=== PATIENT | male | born 1945 | race Caucasian/White ===

== ENCOUNTER 2021-10-08 05:53 | Inpatient (IN) ==
--- NOTE | 2021-09-19 15:53 | PAT Medication Instructions ---
Medication Instructions Date of Service September 19, 2021 Home Medications atorvastatin 20 mg tablet 20 mg PO HS ibuprofen 200 mg tablet (Advil) 400 mg PO Q6H PRN metformin 500 mg tablet 1,000 mg PO BID ASK your surgeon for instructions ibuprofen 200 mg tablet (Advil) 400 mg PO Q6H PRN DO NOT take the morning of surgery metformin 500 mg tablet 1,000 mg PO BID Take evening before surgery atorvastatin 20 mg tablet 20 mg PO HS metformin 500 mg tablet 1,000 mg PO BID Other Notes If you have any questions please call us at [phone] or [phone] or [phone] or [phone]
--- NOTE | 2021-09-24 13:57 | Anesthesiology Consultation ---
Date of Service September 24, 2021 Assessment & Plan (1) Encounter for pre-operative examination: Chart Review Chart Review: Acceptable Risk for Surgery (pending preop Covid testing results and surgeon ordered PCP clearance (09/29/21)) and Patient seen in Pre Admission Testing -Awaiting PCP clearance scheduled 09/29/21 - Check BSG AM DOS Per PAT appt on 09/24/21, patient denies any recent travel or large group activities. No known Covid positive exposures or Covid related symptoms. No known Covid infection in the past 90 days. Pt is vaccinated for Covid. Preop Covid testing scheduled 10/06/21 = will await results. Educated on importance of self quarantining, social distancing and wearing mask in public for the patient one week prior to surgery and after Covid testing done History Surgery Operation Date: 10/08/21 07:45 Proposed Procedures p C4-C6 Anterior Cervical Discectomy Fusion Spinal Cord Monitoring - Radu Kerr, Height/Weight Height: 5 ft 9 in Weight: 92 kg Allergies Allergy/AdvReac Type Severity Reaction Status Date / Time No Known Allergies Allergy Verified 09/19/21 13:48 Medications Home Medications Medication Instructions Recorded Confirmed Last Taken atorvastatin 20 mg tablet 20 mg PO HS 10/09/20 09/19/21 Unknown ibuprofen 200 mg tablet (Advil) 400 mg PO Q6H PRN 09/19/21 09/19/21 Unknown metformin 500 mg tablet 1,000 mg PO BID 09/19/21 09/19/21 Unknown Past Medical History Medical History BPH (benign prostatic hyperplasia) Also has prostate stones BPPV (benign paroxysmal positional vertigo) Stable- no recent issues Chronic neck pain Diabetes Sugars stable 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 per 2019 ECHO (4.0cm) HTN (hypertension) Hyperlipidemia Obesity Skin cancer s/p resection Exercise / Class Metabolic Activity II 4-5 Yardwork/Stairs/Walk up hill (one flight of stairs - no chest pain or SOB ) Past Family History Family History Other No family history of adverse response to anesthesia Past Surgical History Surgical History H/O inguinal hernia repair Right History of colonoscopy History of surgery Excision from facial, ear S/P cervical spinal fusion Status post surgical removal of ganglion cyst Left Past Anesthesia History No Hx of Anesthesia Complications and No Family Hx of Anesthesia Complications History of PONV No Hx of PONV and No Hx of Motion Sickness Social History Smoking Status: Never smoker Do You Dip or Chew Tobacco: No Hx Alcohol Use: No Hx Substance Use: No substance use type: does not use Review of Systems Hx of snoring- no witnessed apnea- no hx of sleep study Patient denies chest pain, shortness of breath, dyspnea on exertion, reflux, cough, wheezing, palpitations. No hx of seizures, stroke, DC. No hx of blood clots or blood transfusions Physical Exam Vital Signs VITALS BP 169/73 (usually better controlled per patient- monitors at home- will check at home and call PCP if elevated) P 65 TEMP 97.9 SP02 96% RESP 16 Constitutional no acute distress ENMT Mouth: no TMJ clicking Thyromental Distance: > or= 3.5 Finger Breadths Mallampati Class: II (smaller airway) Neck + thick neck and + limited neck extension (significant ) Respiratory normal respiratory effort; no respiratory distress Auscultation: lungs clear to auscultation bilaterally; no wheezes Cardiovascular Rate/Rhythm: regular rate and regular rhythm Heart Sounds: no murmur Vessels: no carotid bruit Musculoskeletal Spine: + pain with cervical ROM Extremities: extremities normal to inspection Psychiatric Orientation: alert Lab Results Anesthesia Preop Results Results Anesthesia Widget: WBC 6.61 K/uL (4.8-10.8) 09/24/21 Hgb 15.4 g/dL (14.0-18.0) 09/24/21 Hct 45.5 % (42-52) 09/24/21 Plt 194 K/uL (130-400) 09/24/21 Na 139 mmol/L (136-145) 09/24/21 K 4.3 mmol/L (3.5-5.1) 09/24/21 Cl 106 mmol/L (98-107) 09/24/21 CO2 26 mmol/L (21-32) 09/24/21 BUN 15 mg/dl (6-23) 09/24/21 Creat 0.88 mg/dl (0.6-1.4) 09/24/21 Glucose Level 173 mg/dl (70-99(Fasting)) H 09/24/21 PT 11.1 Seconds (9.0-12.0) 09/24/21 PTT 29.8 Seconds (21.0-31.0) 09/24/21 INR 1.0 (0.9-1.1) 09/24/21 HA1c 6.0 % (4.5-5.6) H 09/24/21 Urine Color Yellow 09/24/21 Urine Appearance Clear (Clear) 09/24/21 Urine pH 5.0 (4.5-7.5) 09/24/21 Urine Specific [place] 1.020 (1.000-1.030) 09/24/21 Urine Protein Negative (Negative) 09/24/21 Urine Glucose (UA) Negative (Negative) 09/24/21 Urine Ketones Negative (Negative) 09/24/21 Urine Blood Negative (Negative) 09/24/21 Urine Nitrite Negative (Negative) 09/24/21 Urine Bilirubin Negative (Negative) 09/24/21 Urine Urobilinogen Negative (Negative) 09/24/21 Urine Leukocyte Esterase Negative (Negative) 09/24/21 Blood Type A Positive 09/24/21 Antibody Screen NEGATIVE 09/24/21 Testing Electrocardiogram Date: 09/24/21 Findings: + NSR @ (64bpm ) Normal EKG per cardio Chest X-Ray Date: 09/24/21 Findings: + NAD Echocardiogram Date: 07/27/19 EF: 69% LV Function: normal RWMA: + none Other Findings: + diastolic dysfunction (Grade I ); no LVH LV is normal in size. Proximal ascending thoracic aorta is mildly enlarged (4.0 cm). Aortic root mildly enlarged. Insufficient TR to accurately measure pulmonary pressure. Mild MR. Mild AL.
[2021-10-08] MEDS ORDERED: ceFAZolin 2000MG 2,000 MG/15 ML SYR IV SCH (06:00)
[2021-10-08] MEDS ORDERED: LR 15ML/HR IV SCH (06:00)
[2021-10-08] MEDS ORDERED: ACETAMINOPHEN 500 MG TAB PO SCH (06:00)
[2021-10-08] MEDS ORDERED: GABAPENTIN 300 MG CAP PO SCH (06:00)
[2021-10-08] MEDS ORDERED: CeleBREX 200 MG CAP PO SCH (06:00)
[2021-10-08] MEDS ORDERED: LIDOCAINE 2% 2 ML VIAL/AMP(20MG/ML) INFIL ONE (06:36)
[2021-10-08] MEDS ORDERED: PROPOFOL IV EMULSION 10 MG/ML 20 ML VIAL IV ONE (06:36)
[2021-10-08] MEDS ORDERED: DEXAMETHASONE SOD INJ 4 MG/ML VIAL ONE (06:36)
[2021-10-08] MEDS ORDERED: ONDANSETRON INJ 2 MG/ML 2 ML VIAL ONE (06:36)
[2021-10-08] MEDS ORDERED: fentaNYL citrate 100 MCG/2 ML VIAL ONE (06:36)
[2021-10-08] MEDS ORDERED: GLYCOPYRROLATE 0.2 MG/ML VIAL ONE (06:36)
[2021-10-08] MEDS ORDERED: NEOSTIGMINE METHYLSULFATE 1 MG/ML 10ML VIAL ONE (06:36)
[2021-10-08] MEDS ORDERED: MIDAZOLAM HCL 1 MG/ML 2ML VIAL ONE (06:36)
[2021-10-08] MEDS ORDERED: ROCURONIUM BROMIDE 10 MG/ML 5 ML VIAL IV ONE (06:38)
[2021-10-08] MEDS ORDERED: ceFAZolin 330 MG/ML 1 GM VIAL ONE (07:02)
[2021-10-08] MEDS ORDERED: ePHEDrine sulfate 50 MG/ML AMP IV PRN (07:25)
[2021-10-08] MEDS ORDERED: ONDANSETRON INJ 2 MG/ML 2 ML VIAL IV PRN ×2 (07:25→12:03)
[2021-10-08] MEDS ORDERED: ATROPINE SULFATE 0.1 MG/ML 10ML SYR IV PRN (07:25)
[2021-10-08] MEDS ORDERED: HYDROmorphone INJ 2 MG/ML SYR/VIAL IV PRN (07:25)
[2021-10-08] MEDS ORDERED: fentaNYL citrate 100 MCG/2 ML VIAL IV PRN (07:25)
[2021-10-08] MEDS ORDERED: PROMETHAZINE HCL 12.5 MG in SODIUM CHLORIDE 0.9% 50 ML IV PRN ×2 (07:25→12:03)
--- NOTE | 2021-10-08 07:36 | History & Physical Bridge Note ---
Date of Service October 08, 2021 History & Physical Bridge Note I have examined the patient, reviewed the History & Physical and in the interval since the performance of the History & Physical I have noted the following changes of clinical significance: no changes noted
--- NOTE | 2021-10-08 07:42 | History & Physical Report ---
Date of Service October 08, 2021 Assessment & Plan (1) Herniation of cervical intervertebral disc with radiculopathy: Plan: C4-C6 anterior cervical discectomy and fusion History of Present Illness Chief Complaint: Neck and arm pain Primary Care Provider: Clovis Stokes PA-C This is a 76-year-old male presents with chronic persistent neck and arm pain after failed course of nonoperative care is here for surgical invention. Allergies Allergy/AdvReac Type Severity Reaction Status Date / Time No Known Allergies Allergy Verified 10/08/21 06:27 Home Medications Medication Instructions Recorded Confirmed Type atorvastatin 20 mg tablet 20 mg PO HS 10/09/20 10/08/21 History ibuprofen 200 mg tablet (Advil) 400 mg PO Q6H PRN 09/19/21 10/08/21 History metformin 500 mg tablet 1,000 mg PO BID 09/19/21 10/08/21 History Past Med/Surg History Medical History BPH (benign prostatic hyperplasia) Also has prostate stones BPPV (benign paroxysmal positional vertigo) Stable- no recent issues Chronic neck pain Diabetes Sugars stable 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 per 2019 ECHO (4.0cm) HTN (hypertension) Hyperlipidemia Obesity Skin cancer s/p resection Surgical History H/O inguinal hernia repair Right History of colonoscopy History of surgery Excision from facial, ear S/P cervical spinal fusion Status post surgical removal of ganglion cyst Left Family History Other No family history of adverse response to anesthesia Social History Smoking Status: Never smoker Second Hand Exposure: Yes (AT [employer]); Do You Dip or Chew Tobacco: No; Hx Alcohol Use: No Hx Substance Use: No Preferred Language: Swiss Communication Ability: Effective Key Account Coordinator Required: No Beliefs That Will Affect Care: None Current Living Situation: Spouse current occupational status: retired Other Information That Helps Us Care for You: No Feels Safe at Home: Yes Safety Concerns: Feels Safe At This Time Assistive Devices: Glasses Physical Exam Physical Exam: Patient is alert and oriented Heart regular in rhythm Lungs clear Results & Data Results & Data ([facility]) Vital Signs (Past 12 Hours) Vital Signs Temp Pulse Resp BP Pulse Ox 10/08/21 06:31 36.9 C 57 L 18 194/67 H 97
[2021-10-08] MEDS ORDERED: FLOSEAL HEMOSTATIC MATRIX 10ML TOP ONE (09:17)
--- NOTE | 2021-10-08 09:18 | Operative Report ---
Post Operative Report Pre & Post Diagnosis Operation Date: 10/08/21 07:45 Pre-Op Diagnosis: Spinal Stenosis, Cervical Region Post-Op Diagnosis: Spinal Stenosis, Cervical Region I identified the patient and participated in the time-out.: Yes Procedure Operation Date: 10/08/21 07:45 Actual Procedures 1 anterior cervical discectomy with bilateral foraminotomies C4-C5 C5-C6. #2 anterior cervical arthrodesis C4-C5 C5-C6. #3 placement of globus coalition interbody spacer filled with infuse 8 mm in height at C4-C5 and 10 mm in height at C5-C6. Surgeon Radu Kerr, Program Admin Kathy Moreno Estimated Blood Loss 20 Findings Consistent with Post-Op Diagnosis Specimens None Indications This is a 76-year-old male who presents with significant cervical radiculopathy. Failing course of nonoperative care is here for surgical intervention. Description of Procedure Patient was met with identified informed consent obtained. Patient was then taken to the operative suite underwent a patient placed in supine position Brennan table head Dalton head setter. All bony prominences well-padded eyes inspected to ensure no external pressure placed upon them. This point the anterior cervical spine was prepped and draped in normal sterile fashion. The assistance of fluoroscopy identified the C5 vertebral body and a transverse incision was placed along the right anterior aspect of the cervical spine overlying this region. Blunt dissection with the assistance of bipolar electrocautery was then performed down to and exposing the anterior cervical spine from C4 to C 6. Self-retaining retractors placed. Then formed a complete discectomy of C5-C6 out to the uncovertebral joints bilaterally. Removed all posterior annular fibers longitudinal ligament bilateral foraminotomies performed. Endplates burred to subcortical bleeding bone and a 10 mm coalition cage filled with I factor tapped in position and screwed into place. I then proceeded to C4-C5 and again complete discectomy performed out to the uncovertebral's bilaterally. [place] distracting pins to assist in visuali zation. Removed all posterior fibers longitudinal ligament bilateral foraminotomies performed. Endplates were then burred to subcortical bleeding bone and 8 mm coalition cage filled with I factor tapped in position and screwed into place. The incision was then copiously irrigated explored to ensure no damage to surrounding structures remaining bleeding. 10 round YARON drain inserted. The incision was then closed with 2 Vicryl in a fashion of 4 Monocryl for final skin closure. Steri-Strip sterile dressings placed. Patient waken taken PACU stable condition. Please note spinal cord monitoring was utilized at the procedure no changes noted. Lastly Kathy Moreno was present out the entire surgery and while the patient positioning complex portions of the surgery and fascial closure. I attest to the content of the Intraoperative Record and any orders documented therein. Any exceptions are noted below.
--- NOTE | 2021-10-08 09:57 | Fluoroscopy Report ---
FL cervical 2-3V CLINICAL HISTORY: ACDF C4-C6 COMPARISON STUDY: None FLUOROSCOPY TIME: 12 seconds. FLUOROSCOPIC IMAGES: 2 fluoroscopic spot images FINDINGS: AP and lateral spot images demonstrate anterior plate and screw fixation from C4 through C6 . Disc spacers are also noted. IMPRESSION: Status post anterior fusion and placement of disc spacers. ACT 112: Negative or not required by law. Electronically signed by: Wilber Moon M.D. 10/08/2021 9:56 AM
--- NOTE | 2021-10-08 10:35 | Anesthesiology Progress Note ---
Date of Service October 08, 2021 Anesthesia Post Procedure Vital Signs Vital Signs: Temp Pulse Pulse Resp BP BP Pulse Ox 10/08/21 10:25 59 L 12 152/73 H 97 10/08/21 10:15 64 12 151/73 H 96 10/08/21 10:05 62 12 149/72 H 98 10/08/21 09:55 68 13 138/65 99 10/08/21 09:45 61 12 107/66 97 10/08/21 09:36 36.0 C L 67 12 143/54 H 99 10/08/21 06:31 36.9 C 57 L 18 194/67 H 97 Pain Intensity Left Neck: Pain Intensity: 4 Transfer of Care Handoff Completed per policy Notes Mental Status: alert / awake / arousable and participated in evaluation Patient Amnestic to Procedure: Yes Nausea / Vomiting: adequately controlled Pain: adequately controlled Airway Patency, RR, SpO2: stable & adequate BP & HR: stable & adequate Hydration State: stable & adequate Anesthetic Complications: no major complications apparent
[2021-10-08] MEDS ORDERED: PHARMACY GLYCEMIC MGMT CONSULT PRN (12:03)
[2021-10-08] MEDS ORDERED: DO NOT ADMINISTER PNEUMOCOCCAL VACCINE PRN (12:03)
[2021-10-08] MEDS ORDERED: FAMOTIDINE 20 MG TAB PO PRN (12:03)
[2021-10-08] MEDS ORDERED: NALOXONE HCL 0.4 MG/1 ML VIAL/CARP IV PRN (12:03)
[2021-10-08] MEDS ORDERED: HYDROmorphone INJ 1 MG/ML SYRINGE IV PRN (12:03)
[2021-10-08] MEDS ORDERED: hydrOXYzine HCl 25 MG TAB PO PRN (12:03)
[2021-10-08] MEDS ORDERED: METOCLOPRAMIDE HCL INJ 5 MG/ML 2 ML VIAL IV PRN (12:03)
[2021-10-08] MEDS ORDERED: bisacodyL 10 MG SUPP PR PRN (12:03)
[2021-10-08] MEDS ORDERED: LORazepam 0.5 MG TAB PO PRN (12:03)
[2021-10-08] MEDS ORDERED: ALUMINUM/MAGNESIUM SUSP 30 ML UDC PO PRN (12:03)
[2021-10-08] MEDS ORDERED: LORazepam 2 MG/1 ML VIAL IV PRN (12:03)
[2021-10-08] MEDS ORDERED: traMADol HCL 50 MG TABLET PO PRN (12:03)
[2021-10-08] MEDS ORDERED: oxyCODONE HCL IR 5 MG TAB (IMMEDIATE RELEASE) PO PRN (12:03)
[2021-10-08] MEDS ORDERED: diphenhydrAMINE Capsule 25 MG CAP PO PRN (12:03)
[2021-10-08] MEDS ORDERED: DO NOT ADMINISTER FLU VACCINE PRN (12:03)
[2021-10-08] MEDS ORDERED: ACETAMINOPHEN 500 MG TAB PO PRN (12:03)
[2021-10-08] MEDS ORDERED: SOD PHOSPHATE/SOD BIPHOSPHATE ENEMA 132 ML BTL PR PRN (12:03)
[2021-10-08] MEDS ORDERED: MAGNESIUM HYDROXIDE SUSP 30 ML UDC PO PRN (12:03)
[2021-10-08] MEDS ORDERED: RACEPINEPHRINE 2.25% NEBU SOLN 0.5 ML VIAL INH PRN (12:03)
[2021-10-08] MEDS ORDERED: dexAMETHasone 8 MG in SYRINGE 0 ML IV PRN (12:03)
[2021-10-08] MEDS ORDERED: ONDANSETRON 4 MG OD TAB PO PRN (12:03)
[2021-10-08] MEDS ORDERED: HYDROmorphone INJ 0.5 MG/0.5 ML SYR IV PRN (12:03)
[2021-10-08] MEDS ORDERED: ACETAMINOPHEN 1,000 MG/100 ML VIAL IV PRN (12:03)
--- NOTE | 2021-10-08 14:01 | Pharmacy Report ---
Pharmacy Glycemic Short Note 2 - Date of Service October 08, 2021 - Glycemic Short BSG Results (Last 24 hours): 10/08/21 10/08/21 10/08/21 06:33 09:39 13:55 POC Glucose 120 H 130 H 133 H OUTPATIENT ANTIDIABETIC REGIMEN: * Metformin 1 g PO BIDM * HbA1c: 6% (09/24/21) ASSESSMENT: * RR is a 76 year old male POD #0 s/p discectomy/fusion * Received 4 mg IV dexamethasone in OR, ordered 6 mg IV daily starting tomorrow morning * preop BSG of 130 mg/dL, postop BSG of 133 mg/dL * Given excellent HbA1c and well-controlled BSGs so far, will hold off on NPH at this time PLAN FOR INPATIENT GLYCEMIC CONTROL: * Hold outpatient oral diabetes medications * consider restarting tomorrow * Basal insulin * hold * Bolus insulin * NovoLog per scale ACHS or Q6hrs while NPO * Goal Range: Low 110 mg/dL - High 140 mg/dL * Correction Factor: 20 mg/dL/unit * Nutritional / Prandial insulin per carb ratio of 1 unit per 7 grams CHO consumed
[2021-10-08] MEDS: INSULIN ASPART PER UNIT SC SCH ×3 (15:25→20:39)
[2021-10-08] MEDS: SODIUM CHLORIDE 0.9% 1000ML 1,000 ML IV SCH (15:42)
--- NOTE | 2021-10-08 17:43 | Consultation ---
Date of Consultation October 08, 2021 Assessment & Plan (1) Herniation of cervical intervertebral disc with radiculopathy: (2) HTN (hypertension): (3) Diabetes: (4) Hyperlipidemia: Herniation of cervical intervertebral disc with radiculopathy Status post ACDF C4-C6 by Dr. Kerr, POD #0 EBL 20 mL Tolerated procedure well Pain/wound management per orthopedics Activity and therapy as directed by Ortho Wean oxygen as able Preop hemoglobin 15.4 T2DM A1c 6.1 preoperatively Hold metformin Glycemic pharmacy on board, appreciate their management HLD Continue statin HTN dx per OP epic; however not on meds will monitor post operatively DVT prophylaxis: SCD/teds, per primary Dispo: Per primary Full code PCP: Clovis Stokes Pt was seen and examined in collaboration with Dr. Jones, please see addendum Thank you for this consultation. We will follow the patient with you during their hospital stay. You can reach a member of the [facility] Hospitalist Team 14/12 via hospitalist role on tiger text. Supervising Physician Co-Signing Physician Notes History notable for 76-year-old man with diabetes type 2, hypertension, BPH who had cervical decompression surgery (ACDF C4-C5 and C5-C6) for cervical spinal stenosis. Patient reports surgical site pain is well controlled Patient has cervical collar with surgical site drain insitu. Other exam unremarkable Check CBC and BMP tomorrow Pharm on for glycemic control Continue home medication Agree with other plans as detailed by Camilla Parra PA-C History of Present Illness Requesting Physician: Dr. Kerr Reason for Consultation: Postop medical management Attending Physician: Radu Kerr, History of Present Illness This is a 76-year-old male who has significant past medical history of T2DM, HTN, HLD, BPH who presented for elective surgical procedure by Dr. Kerr. Patient underwent ACDF C4-C5 and C5-C6 and tolerated the procedure well. He had EBL of 20 mL. We are consulted for postop medical management. Patient has history of T2DM controlled on oral metformin. His last A1c on 06/26/2021 was 6.2. He also has history of hyperlipidemia controlled on atorvastatin. In epic he also has diagnosis of HTN however he is not managed medically for this. Postoperatively he feels well. He initially had Woodard catheter in place and this has since been removed. He has not yet urinated since Woodard catheter has been removed. He tolerated his clear liquid diet. He complains of mild sore throat but denies any difficulty swallowing. He denies fever, chills, sweats, lightheadedness, dizziness, chest pain, shortness breath, URI symptoms, nausea, vomiting, abdominal pain. He denies any radicular symptoms to his upper extremities including numbness, tingling or pain. He states, "this is the best my shoulders have felt in years." Allergies Allergy/AdvReac Type Severity Reaction Status Date / Time No Known Allergies Allergy Verified 10/08/21 06:27 Home Medications Medication Instructions Recorded Confirmed Type atorvastatin 20 mg tablet 20 mg PO HS 10/09/20 10/08/21 History ibuprofen 200 mg tablet (Advil) 400 mg PO Q6H PRN 09/19/21 10/08/21 History metformin 500 mg tablet 1,000 mg PO BID 09/19/21 10/08/21 History Patient History Medical History (Updated 10/08/21 @ 17:40 by Camilla Parra PA-C) BPH (benign prostatic hyperplasia) Also has prostate stones BPPV (benign paroxysmal positional vertigo) Stable- no recent issues Chronic neck pain Diabetes Sugars stable 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 per 2019 ECHO (4.0cm) HTN (hypertension) Hyperlipidemia Obesity Skin cancer s/p resection Surgical History H/O inguinal hernia repair Right History of colonoscopy History of surgery Excision from facial, ear S/P cervical spinal fusion Status post surgical removal of ganglion cyst Left Family History Other No family history of adverse response to anesthesia Social History Smoking Status: Never smoker Second Hand Exposure: Yes (AT FIRST JOB); Do You Dip or Chew Tobacco: No; Hx Alcohol Use: No Hx Substance Use: No Preferred Language: Tuvaluan Communication Ability: Effective Microchip Specialist Required: No Beliefs That Will Affect Care: None Current Living Situation: Spouse current occupational status: retired Other Information That Helps Us Care for You: No Feels Safe at Home: Yes Safety Concerns: Feels Safe At This Time Assistive Devices: Glasses Review of Systems Review of Systems: All systems reviewed & are unremarkable except as noted in HPI & below Physical Exam Physical Exam: Constitutional: WD/WN, vitals as above, NAD, sitting up in bed, pleasant, conversing easily Head: Normocephalic, Atraumatic Eyes: PERRL, conjunctivae normal, anicteric sclerae ENMT: external ear and nose normal, oropharynx normal Neck: C collar in place with YARON drain, dressing CDI, serosang drainage Respiratory: normal respiratory effort, lungs clear to auscultation, no wheeze, rales, rhonchi. Normal insp/exp effort, no accessory muscle use Cardiovascular: RRR, no murmur, no edema , teds in place, Vessels: no JVD or c arotid bruit Chest: normal inspection of chest Abdomen: normal bowel sounds, soft, nontender, no hepatosplenomegaly Musculoskeletal: no cyanosis or clubbing,AROM x 4 Skin: no rashes, warm and dry normal turgor Neurologic: PERRL, EOMI, accommodation nl, no face palsy, no dysarthria CN's II-XI intact bilaterally and moves all extremities Psychiatric: A+Ox3, euthymic affect Lymphatic: no cervical or axillary lymphadenopathy : deferred Results & Data ([facility]) Vital Signs (Past 12 Hours) Vital Signs Temp Pulse Pulse Resp BP BP Pulse Ox 10/08/21 16:35 36.9 C 86 18 134/68 95 10/08/21 16:05 36.9 C 92 H 16 134/72 95 10/08/21 15:35 36.8 C 87 16 150/62 H 96 10/08/21 15:05 94 H 22 138/67 97 10/08/21 14:35 95 H 20 142/76 H 95 10/08/21 14:05 36.3 C L 84 12 147/67 H 95 10/08/21 13:35 79 10 L 145/70 H 95 10/08/21 13:05 78 12 148/75 H 96 10/08/21 12:35 73 14 148/74 H 95 10/08/21 12:05 72 12 143/76 H 96 10/08/21 11:50 64 12 138/71 96 10/08/21 11:35 65 12 146/70 H 96 10/08/21 11:20 64 12 151/72 H 95 10/08/21 11:05 59 L 12 150/73 H 94 10/08/21 10:55 62 12 149/72 H 92 10/08/21 10:45 67 16 154/76 H 97 10/08/21 10:35 36.4 C L 59 L 12 159/71 H 96 10/08/21 10:25 59 L 12 152/73 H 97 10/08/21 10:15 64 12 151/73 H 96 10/08/21 10:05 62 12 149/72 H 98 10/08/21 09:55 68 13 138/65 99 10/08/21 09:45 61 12 107/66 97 10/08/21 09:36 36.0 C L 67 12 143/54 H 99 10/08/21 06:31 36.9 C 57 L 18 194/67 H 97 Laboratory Results Preoperative lab work on 09/24/2021 H&H 15.4 and 45.5 WBC 6.61 Platelet 194 CMP general unremarkable except for glucose 173 and A1c of 6.0 Urinalysis negative SARS-CoV-2 negative Diagnostic Findings Cervical Spine X-Ray 10/08/21 07:45 FL cervical 2-3V CLINICAL HISTORY: ACDF C4-C6 COMPARISON STUDY: None FLUOROSCOPY TIME: 12 seconds. FLUOROSCOPIC IMAGES: 2 fluoroscopic spot images FINDINGS: AP and lateral spot images demonstrate anterior plate and screw fixation from C4 through C6. Disc spacers are also noted. IMPRESSION: Status post anterior fusion and placement of disc spacers. ACT 112: Negative or not required by law. revealed no acute process Medications Administered Current Inpatient Medications Acetaminophen (Acetaminophen 500 Mg Tab) 1,000 mg PO PREOP ADAM Stop: 10/08/21 18:00 Last Admin: 10/08/21 06:42 Dose: 1,000 mg Documented by: Acetaminophen (Acetaminophen 500 Mg Tab) 1,000 mg PO Q8H PRN PRN Reason: MILD Pain Scale 1,2,3 & Pre PT Stop: 11/07/21 12:02 Al Hydrox/Mg Hydrox/Simethicone (Aluminum/Magnesium Susp 30 Ml Udc) 30 ml PO Q6H PRN PRN Reason: Dyspepsia Stop: 11/07/21 12:02 Atorvastatin Calcium (Atorvastatin 20 Mg Tab) 20 mg PO HS ADAM Stop: 11/07/21 20:59 Bisacodyl (Bisacodyl 10 Mg Supp) 10 mg OK DAILY PRN PRN Reason: Constipation Stop: 11/07/21 12:02 Celecoxib (Celebrex 200 Mg Cap) 200 mg PO PREOP ADAM Stop: 10/08/21 18:00 Last Admin: 10/08/21 06:42 Dose: 200 mg Documented by: Diphenhydramine HCl (Diphenhydramine Capsule 25 Mg Cap) 25 mg PO Q6H PRN PRN Reason: Allergic Rhinitis/Insomnia Stop: 11/07/21 12:02 Epinephrine (Racepinephrine 2.25% Nebu Soln 0.5 Ml Vial) 0.5 ml INH NOW PRN PRN Reason: If stridor present Famotidine (Famotidine 20 Mg Tab) 20 mg PO Q12H PRN PRN Reason: Dyspepsia Stop: 11/07/21 12:02 Gabapentin (Gabapentin 300 Mg Cap) 300 mg PO PREOP ADAM Stop: 10/08/21 18:00 Last Admin: 10/08/21 06:42 Dose: 300 mg Documented by: Hydromorphone HCl (Hydromorphone Inj 0.5 Mg/0.5 Ml Syr) 0.5 mg IV Q3H PRN PRN Reason: MOD pain (scale 4-6) & Pre PT Stop: 10/22/21 12:02 Hydromorphone HCl (Hydromorphone Inj 1 Mg/Ml Syringe) 1 mg IV Q3H PRN PRN Reason: severe pain (scale 7-10) Stop: 10/22/21 12:02 Hydroxyzine HCl (Hydroxyzine Hcl 25 Mg Tab) 25 mg PO Q8H PRN PRN Reason: Anxiety Stop: 11/07/21 12:02 Lactated Ringer's (Lr) 1,000 mls @ 15 mls/hr IV .Q24H ADAM Stop: 10/09/21 05:59 Last Infusion: 10/08/21 07:44 Dose: Infused Documented by: Cefazolin Sodium (Ancef 2000mg) 2,000 mg in 15 mls @ 3.75 mls/min IV PREOP ADAM; Protocol Stop: 10/08/21 18:00 Last Admin: 10/08/21 07:44 Dose: 3.75 mls/min Documented by: Dexamethasone 8 mg/ Syringe 2 mls @ 1 mls/min IV NOW PRN PRN Reason: If stridor present Cefazolin Sodium (Ancef 2000mg) 2,000 mg in 15 mls @ 3.75 mls/min IV Q8H ADAM; Protocol Stop: 10/09/21 01:03 Sodium Chloride (Nss 1000ml) 1,000 mls @ 100 mls/hr IV .Q10H ADAM Stop: 11/07/21 12:02 Last Admin: 10/08/21 15:42 Dose: 100 mls/hr Documented by: Promethazine HCl 12.5 mg/ (Sodium Chloride) 50.5 mls @ 202 mls/hr IV Q6H PRN PRN Reason: Nausea &/or Vomiting Stop: 11/07/21 12:02 Acetaminophen (Ofirmev) 1,000 mg in 100 mls @ 400 mls/hr IV Q8H PRN PRN Reason: Pain Rating 1-3 & Pre PT Stop: 10/11/21 12:02 Dexamethasone 6 mg/ Syringe 1.5 mls @ 1 mls/min IV DAILY [facility] Stop: 10/11/21 09:02 Influenza Virus Vaccine Quadrival (Do Not Administer Flu Vaccine) 1 ea N/A PRN PRN PRN Reason: Notification Stop: 11/07/21 12:02 Insulin Aspart (Insulin Aspart Per Unit) 0 units SC ACHS [facility] Stop: 11/07/21 13:14 Last Admin: 10/08/21 15:25 Dose: 5 units Documented by: Insulin Aspart (Insulin Aspart Per Unit) 0 units SC 0200 [facility] Stop: 10/09/21 02:01 Lorazepam (Lorazepam 0.5 Mg Tab) 0.5 mg PO Q8H PRN PRN Reason: Sedation/Anxiety Stop: 11/07/21 12:02 Lorazepam (Lorazepam 2 Mg/1 Ml Vial) 0.5 mg IV Q8H PRN PRN Reason: Sedation/Anxiety Stop: 11/07/21 12:02 Magnesium Hydroxide (Magnesium Hydroxide Susp 30 Ml Udc) 30 ml PO Q24H PRN PRN Reason: Constipation Stop: 11/07/21 12:02 Metoclopramide HCl (Metoclopramide Hcl Inj 5 Mg/Ml 2 Ml Vial) 10 mg IV Q6H PRN PRN Reason: Nausea &/or Vomiting Stop: 11/07/21 12:02 Miscellaneous Information (Pharmacy Glycemic Mgmt Consult) 1 ea N/A UD PRN PRN Reason: Consult Stop: 11/07/21 12:02 Naloxone HCl (Naloxone Hcl 0.4 Mg/1 Ml Vial/Carp) 0.1 mg IV Q5M PRN PRN Reason: Oversedation/Resp depression Stop: 11/07/21 12:02 Ondansetron HCl (Ondansetron Inj 2 Mg/Ml 2 Ml Vial) 4 mg IV Q6H PRN PRN Reason: Nausea &/or Vomiting Stop: 11/07/21 12:02 Ondansetron HCl (Ondansetron 4 Mg Od Tab) 4 mg PO Q6H PRN PRN Reason: Nausea Stop: 11/07/21 12:02 Oxycodone HCl (Oxycodone Hcl Ir 5 Mg Tab (Immediate Release)) 5 - 10 mg PO Q4H PRN PRN Reason: Pain & Pre PT Stop: 10/22/21 12:02 Pneumococcal Polyvalent Vaccine (Do Not Administer Pneumococcal Vaccine) 1 ea N/A PRN PRN PRN Reason: Notification Stop: 11/07/21 12:02 Polyethylene Glycol (Polyethylene (Miralax) 17 Gm Pack) 17 gm PO Q6 ADAM Stop: 11/08/21 05:59 Senna/Docusate Sodium (Docusate Sodium/Senna 50/8.6mg Tab) 2 tab PO HS ADAM Stop: 11/07/21 20:59 Sodium Biphosphate/Sodium Phosphate (Sod Phosphate/Sod Biphosphate Enema 132 Ml Btl) 132 ml OK ONE PRN PRN Reason: Constipation Stop: 11/07/21 12:02 Tramadol HCl (Tramadol Hcl 50 Mg Tablet) 50 - 100 mg PO Q4H PRN PRN Reason: Moderate-Severe pain & Pre PT Stop: 11/07/21 12:02 ECG Rate (beats per minute): 64 Rhythm: normal sinus
[2021-10-08] MEDS: ceFAZolin 2000MG 2,000 MG/15 ML SYR IV SCH (18:10)
[2021-10-08] MEDS ORDERED: DOCUSATE SODIUM/SENNA 50/8.6MG TAB PO SCH (21:00)
[2021-10-08] MEDS ORDERED: ATORVASTATIN 20 MG TAB PO SCH (21:00)
[2021-10-09] MEDS: ceFAZolin 2000MG 2,000 MG/15 ML SYR IV SCH (00:15)
[2021-10-09] MEDS: SODIUM CHLORIDE 0.9% 1000ML 1,000 ML IV SCH (00:19)
[2021-10-09] MEDS ORDERED: INSULIN ASPART PER UNIT SC SCH (02:00)
[2021-10-09] MEDS: POLYETHYLENE (MIRALAX) 17 GM PACK PO SCH ×2 (06:08→12:40)
[2021-10-09 07:14] LABS: Basophils # (auto) 0.02 K/uL (0-0.2); Basophils % (auto) 0.2 %; Eosinophils # (auto) 0.14 K/uL (0-0.5); Eosinophils % (auto) 1.6 %; Hematocrit (blood only) 38.4 % (42-52); Hemoglobin 13.2 g/dL (14.0-18.0); Immature Granulocytes # (auto) 0.03 K/uL (0.00-0.02); Immature Granulocytes % (auto) 0.3 %; Lymphocytes % (auto) 26.7 %; Mean Corpuscular Hemoglobin 32.3 pg (25-34); Mean Corpuscular Hgb Conc 34.4 g/dL (32-36); Mean Corpuscular Volume 93.9 fL (80-100); Mean Platelet Volume 10.9 fL (7.4-10.4); Monocytes # (auto) 0.94 K/uL (0.11-0.59); Monocytes % (auto) 10.5 %; Neutrophils # (auto) 5.46 K/uL (1.4-6.5); Neutrophils % (auto) 60.7 %; Platelet Count 186 K/uL (130-400); RDW Coefficient of Variation 12.9 % (11.5-14.5); RDW Standard Deviation 44.2 fL (36.4-46.3); Red Blood Count 4.09 M/uL (4.7-6.1); White Blood Count 8.99 K/uL (4.8-10.8)
[2021-10-09 07:42] LABS: BUN Creatinine Ratio 13.1 (10-20); Calcium 8.7 mg/dl (8.5-10.1); Creatinine Clr Calc Pharmacy 79.6 ml/min; Est GFR (African American) 99.3 ml/min; Est GFR (Non-African American) 85.7 ml/min
--- NOTE | 2021-10-09 08:57 | Discharge Summary ---
Date of Service October 09, 2021 Admission HPI Per Admitting Provider This is a 76-year-old male presents with chronic persistent neck and arm pain after failed course of nonoperative care is here for surgical invention. Principal Diagnosis Cervical spinal stenosis with radiculopathy Discharge Data Allergies Allergy/AdvReac Type Severity Reaction Status Date / Time No Known Allergies Allergy Verified 10/08/21 06:27 Consultations 10/08/21 12:03 Consult Hospitalist Routine Procedures Performed Operation Date: 10/08/21 07:45 Actual Procedures p C4-C6 Anterior Cervical Discectomy Fusion with use of iFactor, Spinal Cord Monitoring(Not Applicable) - Radu Kerr DO Ordered Studies 10/08/21 07:45 FL cervical 2-3V Routine Hospital Course (1) Herniation of cervical intervertebral disc with radiculopathy: Patient 1 anterior cervical discectomy and fusion tolerated this well was taken to the orthopedic floor postoperatively. Postop day 1 is swallowing well no hoarseness. Arm symptoms improved. Pain well controlled. YARON drain decreasing probably. Subsequent discharge home. Discharge orders instructions from the chart for further view. Total Time Total Time Spent Total Time Spent (In Minutes): 20 minutes Discharge Plan Discharge Items Patient Disposition: Home - Self-Care Reason For Visit: Spinal Stenosis, Cervical Region Discharge Diagnosis: Cervical spinal stenosis with radiculopathy Activity: As commented below Non-emergency contact: Primary Care Provider Call non-emergency contact if: you have any medication questions Follow-up/Referrals: Clovis Stokes PA-C [Primary Care Provider] - Diet: Regular Addtl Attending Provider Instructions: ACTIVITY RECOMMENDATIONS: SELF CARE INSTRUCTIONS AFTER CERVICAL FUSIONS 1. No smoking. Smoking drastically decreases the chance of a solid fusion. 2. No bending, lifting more than 5 pounds, or twisting (roll like a log when turning in bed). 3. You may shower 3 days after surgery. Thoroughly dry wound. Do not soak in the tub. 4. Cervical collar: Must be worn at all times including sleeping. You may remove the brace only to bath, eat and if you are sitting in a recliner. 5. Please walk as much as you can for exercise. Gradually increase the distance that you walk as your endurance increases. SPECIAL CARE INSTRUCTIONS: VERY IMPORTANT TO READ AND REVIEW A. Do not take any anti-inflammatory medications (i.e. Indocin, Advil, Aspirin, Naprosyn, Aleve, Motrin, etc.) as these may inhibit the chance of a solid fusion. Tylenol is okay to take. B. Your surgical incision has been closed with a cosmetic suture under the skin that will dissolve in about 6 weeks. In 14 days, you can use a pair of clean scissors and cut the suture that is left outside of the skin at the ends of your incision. C. Complications are uncommon, but please contact us if you have any signs or symptoms of: 1. wound infection (fever higher than 102.5 degrees F, redness, separation of wound, drainage, or increasing pain from the incision) 2. blood clots in legs (pain, swelling, redness and warmth in legs) 3. urinary tract infection (fever higher than 102.5 degrees, burning upon urination or increased frequency of urination) 4. nerve problems (inability to walk on your toes or heels, numbness, loss of bowel or bladder control) 5. any other symptoms that concern you. D. Please call the office at if you have any concerns or questions about your operation or recovery. MANAGING PAIN AFTER SPINAL SURGERY 1. Narcotic medication is intended for short-term use and will be provided for surgical pain. Surgical pain usually lasts for a period of 4-6 weeks. Narcotic medication includes Percocet, Vicodin, Darvocet, Tylenol #3 or Lortab. 2. Longer-term pain is more appropriately treated with non-narcotic medication such as Tylenol ES. 3. Muscle spasm is not appropriately treated with narcotics. Muscle relaxers such as Soma, Flexeril or Skelaxin can be used along with Tylenol ES. 4. Remember that we all live with some "aches and pains". This is not unusual or uncommon after an injury or as we get older. 5. We will provide appropriate medication within the normal guidelines of their prescribed use. We will also be very cautious and aware of potential abuse and extended duration of patients' medication needs. 6. Please allow 2-3 days to process refills. Prescriptions will not be mailed but must be picked up at the office. FOLLOW UP VISIT: Keep your scheduled follow-up appointment. Any questions, please call the office at . Pending Studies at Discharge: No Stand-Alone Forms: [facility], Smoking Cessation Medications and DC Order Prescriptions: New tramadol 50 mg tablet 50 mg PO Q6H PRN (Reason: pain, moderate) Qty: 20 RF: 0 oxycodone 5 mg tablet 5 mg PO Q6H PRN (Reason: pain, severe) Qty: 20 RF: 0 Continued atorvastatin 20 mg Tablet 20 mg PO HS RF: 0 metformin 500 mg Tablet 1,000 mg PO BID RF: 0 ibuprofen [Advil] 200 mg Tablet 400 mg PO Q6H PRN (Reason: Pain) RF: 0 Discharge Orders: Discharge Order (Routine); Ordered 10/09/21 Ordered By: Radu Kerr Admission Data Admit Date/Time: 10/08/21 09:22 Attending Provider: Radu Kerr Admit Provider: Radu Kerr Primary Care Provider: Clovis Stokes Other Providers: Donny Hoffmann
[2021-10-09] MEDS ORDERED: dexAMETHasone 6 MG in SYRINGE 0 ML IV SCH (09:00)
[2021-10-09] MEDS: INSULIN ASPART PER UNIT SC SCH ×2 (09:07→12:37)
[2021-10-09] MEDS ORDERED: TAMSULOSIN HCL 0.4 MG CAP PO SCH (12:30)
--- NOTE | 2021-10-09 15:41 | Hospitalist Progress Note ---
Date of Service October 09, 2021 Assessment & Plan (1) Herniation of cervical intervertebral disc with radiculopathy: (2) HTN (hypertension): (3) Diabetes: (4) Hyperlipidemia: Plan: Herniation of cervical intervertebral disc with radiculopathy S/P ACDF C4-C6 by Dr. Kerr, POD # 1 Postoperative acute blood loss anemia -Neck X ray:Status post anterior fusion and placement of disc spacers. EBL 20 mL Pain/wound, activity management per orthopedics Weaned off of supplemental oxygen Monitor CBC Bowel regimen to prevent constipation Urinary Retention Developed postoperatively Started on Flomax Placed on Woodard Catheter for now Patient prefers to follow up with Urology as outpatient DM II HbA1c 6.1 preoperatively Hold metformin Glycemic pharmacy on board, appreciate their management Insulin while hospitalized HLD Continue statin HTN Asper records Not on meds Monitor DVT Px: As per family Dispo: Per primary Code Status Full code PCP: Clovis Stokes Thank you for this consultation. We will follow the patient with you during their hospital stay. You can reach a member of the [facility] Hospitalist Team 14/12 via hospitalist role on tiger text. Admission and Anticipated Discharge Date Admission Date: October 08, 2021 Subjective Patient is seen and examined at bedside Neck at surgical site is controlled Reports urinary retention Denies dyspnea, dizziness, chest pain, nausea, abd pain Eager to get discharged Review of Systems Review of Systems: All systems reviewed & are unremarkable except as noted in Subjective Physical Exam Physical Exam: Physical Exam: Vitals signs as noted above General Appearance:Moderately built and nourished, no apparent distress Head: normocephalic, Atraumatic Eyes: normal inspection, EOMI Neck: supple, Trachea midline, +Anterior surgical scar in dressing, +Collar Respiratory/Chest: Normal breath sounds, CTA, No accessory muscle use Cardiovascular: S1, S2, No murmur Abdomen/GI:Soft, Non tender, Bowel sounds present Extremities/Musculoskeletal:normal inspection, no edema Neurologic/Psych:AAOX3, grossly no focal neurological deficits Skin: normal color, warm Results & Data Results & Data ([facility]) Vital Signs (Past 12 Hours) Vital Signs Temp Pulse Resp BP Pulse Ox 10/09/21 12:26 36.7 C 57 L 18 156/62 H 95 10/09/21 11:00 60 16 98 10/09/21 10:15 36.8 C 66 16 133/65 97 10/09/21 08:20 158/67 H 10/09/21 08:11 36.7 C 61 18 190/77 H 95 10/09/21 07:30 61 16 96 10/09/21 06:12 36.6 C 57 L 16 172/69 H 98 10/09/21 04:35 36.4 C L 63 16 154/69 H 97 10/09/21 03:35 66 16 96 Laboratory Results Short CBC 10/09/21 Range/Units 06:57 WBC 8.99 (4.8-10.8) K/uL Hgb 13.2 L (14.0-18.0) g/dL Hct 38.4 L (42-52) % Plt Count 186 (130-400) K/uL BMP 10/09/21 06:57 Sodium 138 Potassium 4.0 Chloride 108 H Carbon Dioxide 26 BUN 11 Creatinine 0.84 Glucose 117 H Calcium 8.7
== END 2021-10-09 13:07 | disposition home or self-care (01) | DRG 472 ==
LOC: ASU 05:53 → PACUINP 09:22 → 3E 15:41